=== PATIENT | female | born 1960 | race Caucasian/White ===

== ENCOUNTER 2016-12-23 11:05 | Inpatient (IN) ==
--- NOTE | 2016-12-22 21:42 | Discharge Summary ---
<Jacquelyn Rodriguez - Last Filed: 12/22/16 21:40> Date of Encounter: 12/22/16 - Discharge Diagnosis (1) Knee instability Priority: Primary Status: Acute Qualifiers: Laterality: left Qualified Code(s): M25.362 - Other instability, left knee (2) Diabetes Priority: Secondary Status: Chronic Qualifiers: Diabetes mellitus type: type 2 Diabetes mellitus complication status: with unspecified complications Diabetes mellitus long-term insulin use: unspecified long-term insulin use status Qualified Code(s): E11.8 - Type 2 diabetes mellitus with unspecified complications (3) Hypertension Priority: Secondary Status: Chronic Qualifiers: Hypertension type: essential hypertension Qualified Code(s): I10 - Essential (primary) hypertension (4) Obesities, morbid Priority: Secondary Status: Chronic Qualifiers: Obesity type: unspecified obesity type Qualified Code(s): E66.01 - Morbid ( severe) obesity due to excess calories - Discharge Medications Home Medications: Cetirizine HCl [Zyrtec] 10 mg PO DAILY 07/05/15 [History] Lisinopril/Hydrochlorothiazide [Zestoretic 20-12.5 mg Tablet] 2 tab PO DAILY [History] Omeprazole [PriLOSEC] 20 mg PO DAILY 07/05/15 [History] GlipiZIDE [Glipizide] 5 mg PO DAILY 01/13/16 [History] Aspirin Enteric Coated [Aspirin EC] 325 mg PO DAILY #21 tablet. 12/22/16 [Rx] HYDROcodone/Acet 5/325 mg [[place] 5-325 mg] 1 - 2 tab PO Q6H PRN #40 tab [Rx] Escitalopram [Lexapro] 10 mg PO BID 12/23/16 [History] Fluticasone Propionate Nasal [Flonase] 1 spr NS DAILY 12/23/16 [History] Allergies/Adverse Reactions: Allergies Oxycodone Allergy (Verified 12/23/16 11:31) Difficulty Breathing panic attacks, difficulty breathing meperidine [From Demerol] Adverse Reaction (Verified 12/23/16 11:31) Vomiting morphine Adverse Reaction (Verified 12/23/16 11:31) Vomiting IVP DYE Allergy (Uncoded 07/05/15 13:42) Itching Primary care physician: Ab Nunes CNP - Patient Status Disposition: Home, Self-Care Condition: Good - Discharge Instructions Follow Up With: Gordy Vu MD [Partnered Physician] - 01/20/17 5:00 pm Jacquelyn Rodriguez PAC [Physician Program Director Substance Abuse] - 12/31/16 2:45 pm Ab Nunes CNP [Primary Care Provider] - - Hospital Course Hospital course: Ms. Treadwell is a 56 year old female - Time Spent with Patient Total time spent providing and/or coordinating discharge services: <Gordy Vu - Last Filed: 12/24/16 07:45> Date of Encounter: 12/24/16 Time of Encounter: 07:45 - Discharge Diagnosis (1) Knee instability Priority: Primary Status: Acute Qualifiers: Laterality: left Qualified Code(s): M25.362 - Other instability, left knee (2) Diabetes Priority: Secondary Status: Chronic Qualifiers: Diabetes mellitus type: type 2 Diabetes mellitus complication status: with unspecified complications Diabetes mellitus long-term insulin use: unspecified long-term insulin use status Qualified Code(s): E11.8 - Type 2 diabetes mellitus with unspecified complications (3) Hypertension Priority: Secondary Status: Chronic Qualifiers: Hypertension type: essential hypertension Qualified Code(s): I10 - Essential (primary) hypertension (4) Obesities, morbid Priority: Secondary Status: Chronic Qualifiers: Obesity type: unspecified obesity type Qualified Code(s): E66.01 - Morbid ( severe) obesity due to excess calories Primary care physician: Ab Nunes CNP - Patient Status Functional capacity at discharge: uses cane/walker Overall status at discharge: patient is progressing back to baseline - Hospital Course Hospital course: Ms. Treadwell is a 56 year old female The patient had an uneventful postoperative course. They received antibiotics and physical therapy and were discharged in stable condition. There will follow -up in the office in 2 weeks. Aspirin DVT prophylaxis - Time Spent with Patient Total time spent providing and/or coordinating discharge services:
[2016-12-23] MEDS ORDERED: Famotidine 20 MG/2 ML VIAL IVP ONE (11:24)
[2016-12-23] MEDS ORDERED: CeFAZolin Pre 3,000 MG/100 ML 3,000 MG/100 ML BAG IVPB ONE (11:30)
[2016-12-23] MEDS ORDERED: Ringers Solution, Lactated 1,000 ML IVC SCH ×2 (11:30→15:06)
--- NOTE | 2016-12-23 11:36 | History & Physical Report ---
Date of Encounter: 12/23/16 Time of Encounter: 11:35 24 Hour HP Update - Instructions Instructions: If the History and Physical is less than 30 days old and was completed prior to A.M. admission and or procedure and has NOT been updated on calendar day of procedure please complete this update prior to performing procedure. - Update Patient reports changes in Medical Condition: No Changes in assessment/condition: No Changes in Medication: No Preop tests/diagnostics Reviewed: Yes Surgery Remains Indicated: Yes Consent for Planned Operative Procedure(s) Verified: Yes - Pre-Operative Checklist Preoperative Checklist Indicated: No Prophylactic Antibiotic Ordered: Yes Is VTE Prophylaxis Indicated?: Yes
[2016-12-23] MEDS ORDERED: *HR* FentaNYL (PF) 100 MCG/2 ML VIAL ONE (11:57)
[2016-12-23] MEDS ORDERED: *HR* Midazolam HCl 2 MG/2 ML VIAL ONE ×2 (11:57→13:08)
[2016-12-23] MEDS ORDERED: *HR* Propofol 200 MG/20 ML VIAL IVP ONE (11:57)
[2016-12-23] MEDS ORDERED: Lidocaine -MPF 2% 2 ML VIAL ONE (11:59)
[2016-12-23] MEDS ORDERED: *HR* Promethazine 25 MG/ML VIAL IVP PRN (12:01)
--- NOTE | 2016-12-23 12:32 | Anesthesia Evaluation PreOp ---
Date of Encounter: 12/23/16 Time of Encounter: 12:30 - Past History Planned Operation: Left TKA Cardiac History: HTN Pulmonary History: HANANE Dx DROP WIRE ALINER History: Denies Any Significant HX Other Medical History: Diabetes Type II (Accu check 127), Other (MO) Anesthesia History: No Prior Anesthetic Complications : No Alcohol Use: none Drug use: none Medications and Allergies Cetirizine HCl [Zyrtec] 10 mg PO DAILY 07/05/15 [History] Lisinopril/Hydrochlorothiazide [Zestoretic 20-12.5 mg Tablet] 2 tab PO DAILY [History] Omeprazole [PriLOSEC] 20 mg PO DAILY 07/05/15 [History] GlipiZIDE [Glipizide] 5 mg PO DAILY 01/13/16 [History] Aspirin Enteric Coated [Aspirin EC] 325 mg PO DAILY #21 tablet. 12/22/16 [Rx] HYDROcodone/Acet 5/325 mg [[place] 5-325 mg] 1 - 2 tab PO Q6H PRN #40 tab [Rx] Escitalopram [Lexapro] 10 mg PO BID 12/23/16 [History] Fluticasone Propionate Nasal [Flonase] 1 spr NS DAILY 12/23/16 [History] Allergies Oxycodone Allergy (Verified 12/23/16 11:31) Difficulty Breathing panic attacks, difficulty breathing meperidine [From Demerol] Adverse Reaction (Verified 12/23/16 11:31) Vomiting morphine Adverse Reaction (Verified 12/23/16 11:31) Vomiting IVP DYE Allergy (Uncoded 07/05/15 13:42) Itching - Meds/Allergy Pre-op Review Medications Reviewed: Yes Allergies Reviewed: Yes Beta Blockers on Current Med List: No Anesthesia Results - Labs Laboratory Tests 12/18/16 12/18/16 09:35 09:48 Hgb 13.5 Hct 40.1 Plt Count 143 Sodium 139 Potassium 3.8 BUN 22 H Creatinine 0.81 - Imaging EKG: report reviewed (SR) Anesthesia Exam O2 Sat Height 1.65 m Height 1.65 m Height 1.65 m Height 1.65 m Weight 154.221 kg Weight 154.221 kg Weight 154.221 kg Weight 154.221 kg O2 Sat by Pulse Oximetry 95 O2 Sat by Pulse Oximetry 95 O2 Sat by Pulse Oximetry 95 O2 Sat by Pulse Oximetry 95 Vital Signs Temp Pulse Resp BP Pulse Ox 98.6 F 76 18 143/39 95 12/23/16 11:32 12/23/16 11:32 12/23/16 11:32 12/23/16 11:32 12/23/16 11:32 Height: 5'5 Weight: 340 lbs NPO (# of Hours): MN Pain Scale: 0 - HEENT Pupil (Motor): Pupils equal, EOMI Mallampati: III Teeth: Normal Oral Opening: Less than or equal to 3 - DROP WIRE ALINER LOC: Oriented DROP WIRE ALINER Motor: Normal RUE, Normal LUE, Normal RLE, Normal LLE, Normal Face DROP WIRE ALINER Sensory: Normal: RUE, LUE, RLE, LLE, Face - Cardiac Rhythm: Regular Murmur: None JVD: No Carotid Bruit: No - Pulmonary Breath Sounds: bilateral Clear Respiratory Effort: Symmetrical Anesthesia Assess/Plan ASA Score: 3 (MO DM HTN) Modified Marcial Scale for Level of Consciousness: Cooperative, oriented, and tranquil Anesthetic Plan: General Monitoring Plan: Standard Monitors Recovery Plan: PACU (Discussed GA, refused Fem Block, agrees to proceed)
[2016-12-23] MEDS ORDERED: Scopolamine Patch 1.5 MG PATCH.TD72 TD ONE (12:52)
[2016-12-23] MEDS ORDERED: Ondansetron 4 MG/2 ML VIAL ONE (13:15)
[2016-12-23] MEDS ORDERED: Dexamethasone 4 MG/ML VIAL ONE (13:15)
[2016-12-23] MEDS ORDERED: Ketorolac 30 MG/ML VIAL ONE (13:22)
[2016-12-23] MEDS ORDERED: *HR* HYDROmorphone 2 MG/ML SYRINGE ONE (13:37)
--- NOTE | 2016-12-23 13:43 | Orthopedic Operative Note ---
Date of procedure: 12/23/16 Pre-op diagnosis: Left knee instability total knee Post-op diagnosis: same Procedure: Procedure: left total knee poly exchange Estimated blood loss: 100 cc Hardware: Arthrex 20 PS POLY Exam Under anesthesia: Significant varus valgus instability Procedural Notes:Patient with significant varus valgus instability. Operative procedure: The patient was brought to the operating room and placed on the operating room table. After general anesthesia was administered the operative knee was examined. Findings were noted in the exam under anesthesia. The operative extremity was prepped and draped in sterile surgical fashion. The patient received IV antibiotics prior to skin incision. A standard midline incision was made through the old incision it was centered over the patella. The incision was made through the skin and subcutaneous tissue. A medial parapatellar tendon approach was performed. Care was taken to preserve tissue along the medial aspect of the patella. And to protect the patella tendon. The deep MCL was released off the medial tibia. The infra patella fat pad was excised. Knee was brought into flexion. The Poly was removed and exchanged with a 20 PS poly up from a 16. This gave significant stability to the knee. The ACL the PCL the medial and the lateral menisci were excised. The tibia was subluxed forward. The entry hole was made for the intramedullary tibial guide. Guide was seated to resect 2 mm off the more abnormal side. The knee was brought into flexion the distal femur was sized. The femoral guide was seated, the anterior cut was made followed by the posterior condylar cut, followed by the chamfer cuts. The finishing guide was seated the box cut was made and the lug holes were drilled. The tibia was sized, the tibial tray was seated and prepared with the large drill followed by the fin cutter. Trial reduction revealed full extension no varus valgus instability with the appropriate PS Elena. The knee sat for 2 minutes with a Betadine saline solution. The knee was then irrigated out with 2 L of pulse irrigation. The extensor mechanism was closed with #2 FiberWire suture and #2 PDS suture. The subcutaneous tissue was then irrigated and closed deep with #1 PDS suture superficially with 0 PDS suture and skin was closed with skin nader and Dermabond. The patient was then placed in a sterile dressing and a postoperative brace extubated and transferred to recovery room in stable condition. Anesthesia: GETA Surgeon: Gordy Vu Automatic Lump Making Machine Tender: Jacquelyn Rodriguez Condition: stable Disposition: PACU
[2016-12-23] MEDS: *HR* HYDROmorphone (PF) 1 MG/ML SYRINGE IVP PRN ×4 (14:25→14:45)
[2016-12-23 14:57] LABS: Hematocrit 38.9 % (35.3-44.9); Hemoglobin 13.1 g/dL (11.5-15.4)
--- NOTE | 2016-12-23 14:59 | Anesthesia Evaluation Post Op ---
Date of Encounter: 12/23/16 Time of Encounter: 14:58 - Vital Signs Vital Signs: Vital Signs/O2 Sat, Most Current Temp Pulse Resp BP Pulse Ox 97.7 F 69 14 160/89 95 12/23/16 14:36 12/23/16 14:46 12/23/16 14:46 12/23/16 14:46 12/23/16 14:46 - Lungs Lungs: Clear Ascult./Percussion - Airway Airway: Non-obstructed - Cardiovascular Regular Rate - Mental Status Mental Status: Alert & Oriented, Answers Appropriately - Pain Pain Scale: 5 Pain Scale used: Numeric (1 - 10) - Nausea Vomiting Nausea Vomiting: Not Present - Hydration Hydration: NPO, Has not voided - Discharge PostOp Status: Transfer Patient to floor
[2016-12-23] MEDS ORDERED: Sennosides 8.6 MG TABLET PO PRN (15:06)
[2016-12-23] MEDS ORDERED: Naloxone 0.4 MG/ML INJ IVP PRN (15:06)
[2016-12-23] MEDS ORDERED: *HR* HYDROmorphone (PF) 1 MG/ML SYRINGE IVP PRN (15:06)
[2016-12-23] MEDS ORDERED: Ondansetron 4 MG/2 ML VIAL IVP PRN (15:06)
[2016-12-23] MEDS ORDERED: Acetaminophen 325 MG TABLET PO PRN (15:06)
[2016-12-23] MEDS ORDERED: D5% in Water 1,000 ML IV PRN (15:06)
[2016-12-23] MEDS ORDERED: *HR* Dextrose 50 % in Water (Syg) 50 ML SYRINGE IVP PRN (15:06)
[2016-12-23] MEDS ORDERED: Temazepam 15 MG CAPSULE PO PRN (15:06)
[2016-12-23] MEDS ORDERED: MOM Conc 10 ML UD.LIQ PO PRN (15:06)
[2016-12-23] MEDS ORDERED: Dextrose Gel 15 GM PO PRN ×2 (15:06)
[2016-12-23] MEDS: Insulin LISPRO 300 UNITS/3 ML VIAL SQ SCH (16:40)
[2016-12-23] MEDS: ceFAZolin 3,000 MG in D5% in Water 100 ML IVPB SCH (16:43)
[2016-12-23] MEDS: *HR* Enoxaparin 30 MG/0.3 ML SYRINGE SQ SCH (16:43)
[2016-12-23] MEDS ORDERED: *HR* Enoxaparin 30 MG/0.3 ML SYRINGE SQ SCH (18:00)
[2016-12-23] MEDS: *HR* HYDROcodone/Acet 5/325 mg TABLET PO PRN (20:55)
[2016-12-24] MEDS: ceFAZolin 3,000 MG in D5% in Water 100 ML IVPB SCH (00:21)
[2016-12-24] MEDS: *HR* HYDROcodone/Acet 5/325 mg TABLET PO PRN ×4 (01:06→14:46)
[2016-12-24] MEDS: *HR* Enoxaparin 30 MG/0.3 ML SYRINGE SQ SCH (04:58)
[2016-12-24 05:01] LABS: Hematocrit 38.4 % (35.3-44.9); Hemoglobin 12.5 g/dL (11.5-15.4)
[2016-12-24 05:18] LABS: BUN/Creatinine Ratio 24 (6-26); Blood Urea Nitrogen 21 mg/dL (7-20); Calcium 8.8 mg/dL (8.6-10.8); Carbon Dioxide 24 mEq/L (19-29); Chloride 103 mEq/L (98-109); Glucose 181 mg/dL (70-99); Osmolality,Calculated 292 (280-300); Potassium 4.7 mEq/L (3.5-4.5); Sodium 137 mEq/L (136-145); eGFR For African Americans > 60 (> 60); eGFR For Non-African Americans > 60 (> 60)
--- NOTE | 2016-12-24 07:46 | Orthopedics Progress Note ---
Date of Encounter: 12/24/16 Time of Encounter: 07:46 - Assessment and Plan (1) Knee instability Current Visit: Yes Status: Acute Qualifiers: Laterality: left Qualified Code(s): M25.362 - Other instability, left knee (2) Diabetes Current Visit: No Status: Chronic Qualifiers: Diabetes mellitus type: type 2 Diabetes mellitus complication status: with unspecified complications Diabetes mellitus fpc insulin use: unspecified fpc insulin use status Qualified Code(s): E11.8 - Type 2 diabetes mellitus with unspecified complications (3) Hypertension Current Visit: No Status: Chronic Qualifiers: Hypertension type: essential hypertension Qualified Code(s): I10 - Essential (primary) hypertension (4) Obesities, morbid Current Visit: No Status: Chronic Qualifiers: Obesity type: unspecified obesity type Qualified Code(s): E66.01 - Morbid ( severe) obesity due to excess calories Subjective Interval history: Patient was seen this morning doing well without complaints. Afebrile vital signs stable. Operative extremity: Neurovascularly intact Dressing clean dry and intact Calves nontender Assessment and plan: Continue with postoperative care Hematocrit 38 discharged today Objective Vital signs: Vital Signs Temp Pulse Resp BP Pulse Ox 12/24/16 07:03 97.9 F 70 20 127/83 97 12/24/16 05:21 98.1 F 82 16 99/64 95 12/24/16 01:21 98.3 F 77 15 121/67 97 12/23/16 21:35 98.9 F 84 16 145/85 94 L 12/23/16 16:50 72 18 139/72 94 L 12/23/16 16:46 80 16 141/86 92 L 12/23/16 15:45 98.5 F 80 16 141/86 92 L 12/23/16 15:42 95 12/23/16 15:30 83 16 148/87 95 12/23/16 15:06 69 16 152/88 97 12/23/16 14:56 97.2 F L 70 16 147/86 96 12/23/16 14:46 69 14 160/89 95 12/23/16 14:36 97.7 F 76 16 176/99 94 L 12/23/16 14:26 72 16 180/101 95 12/23/16 14:16 69 18 157/86 96 12/23/16 14:06 98.6 F 80 16 130/70 96 12/23/16 11:45 98.6 F 76 18 143/39 95 12/23/16 11:37 98.6 F 76 18 143/89 95 12/23/16 11:35 98.6 F 76 18 143/39 95 12/23/16 11:32 98.6 F 76 18 143/39 95 Intake and Output 12/23/16 12/23/16 12/24/16 15:59 23:59 07:59 Intake Total 460 / 460 Output Total 200 / 200 Balance -200 / -200 460 / 460 Intake: IV Fluids 100 / 100 Ancef 3,000 MG In 100 / 100 Dextrose 5% 100 ML @ 200 mls/hr IVPB Q8HR CRISTY Rx#: [id number] Oral 360 / 360 Output: Estimated Blood Loss 200 / 200 Other: # Voids 1 Weight 154.221 kg Blood Glucose* 121 208 170 - Labs CBC & BMP: 12/24/16 04:43 12/24/16 04:43 Labs: Abnormal lab results Potassium 4.7 mEq/L (3.5-4.5) H 12/24/16 04:43 BUN 21 mg/dL (7-20) H 12/24/16 04:43 Glucose 181 mg/dL (70-99) H 12/24/16 04:43 POC Glucose 208 (58-89) H 12/23/16 21:20 - VTE Documentation of Mechanical Device: Venous foot pump, device Consult Discharge Plan - Plan Referrals: Gordy Vu MD [Partnered Physician] - 01/20/17 5:00 pm Jacquelyn Rodriguez PAC [Physician Power Builder Developer] - 12/31/16 2:45 pm Ab Nunes CNP [Primary Care Provider] -
[2016-12-24] MEDS: Insulin LISPRO 300 UNITS/3 ML VIAL SQ SCH ×2 (08:24→12:14)
[2016-12-24] MEDS ORDERED: Fluticasone Propionate Nasal 50 MCG/SPRAY BOTTLE NS SCH (09:00)
[2016-12-24] MEDS ORDERED: Lisinopril-HCTZ 20-12.5mg TABLET PO SCH (09:00)
[2016-12-24] MEDS ORDERED: Loratadine 10 MG TABLET PO SCH (09:00)
[2016-12-24] MEDS ORDERED: *HR* GlipiZIDE 5 MG TABLET PO SCH (09:00)
[2016-12-24] MEDS ORDERED: FLU VACC QS2016-17 36MOS UP/PF 0.5 ML SYRINGE IM ONE (14:21)
[2016-12-24 14:48] VITALS: BP 139/66
== END 2016-12-24 16:05 | disposition home or self-care (01) | DRG 488 ==
LOC: SAMDAY 11:05 → 3NENU 15:42
PROVIDERS: ADMIT Orthopaedic Surgery; ATTEND Orthopaedic Surgery